=== PATIENT | female | born 1965 | race Caucasian/White ===

== ENCOUNTER 2019-05-03 16:58 | Inpatient (IN) ==
[2019-05-03] MEDS ORDERED: Ondansetron 4 MG/2 ML VIAL IVP ONE ×2 (17:19→19:07)
[2019-05-03] MEDS ORDERED: 0.9 % Sodium Chloride 500 ML IVC ONE (17:19)
[2019-05-03] MEDS ORDERED: Aspirin 81 MG TAB.CHEW PO ONE (17:19)
[2019-05-03] MEDS ORDERED: Isovue-370 500 ML BOTTLE IVP ONE (17:20)
[2019-05-03 17:56] LABS: Basophils % 0.2 %; Eosinophils # 0.1 K/mcL (0.0-0.6); Eosinophils % 0.9 %; Hematocrit 35.2 % (35.3-44.9); Hemoglobin 12.8 g/dL (11.5-15.4); Immature Granulocytes % 0.4 % (0-4); Lymphocytes # 1.1 K/mcL (0.6-4.6); Lymphocytes % 13.3 %; Mean Corpuscular HGB Conc 36.4 g/dL (31.6-35.5); Mean Corpuscular Hemoglobin 34.1 pg (28.0-33.3); Mean Corpuscular Volume 93.9 fL (83.0-100.0); Mean Platelet Volume 9.9 fL (9.4-12.4); Monocytes # 0.6 K/mcL (0.0-1.3); Monocytes % 7.8 %; Neutrophils # 6.3 K/mcL (1.6-8.9); Platelet Count 227 K/mcL (140-400); Red Blood Count 3.75 M/mcL (3.82-4.97); Red Cell Distribution Width 13.4 % (11.5-14.5); Segmented Neutrophils % 77.4 %; White Blood Count 8.1 K/mcL (4.3-11.1)
[2019-05-03] MEDS ORDERED: Pantoprazole 80 MG in 0.9 % Sodium Chloride 50 ML IVPB ONE (18:00)
[2019-05-03] MEDS ORDERED: cefTRIAXone 1,000 MG in Water for inj. (sterile) 10 ML IVP ONE (18:00)
[2019-05-03 18:16] LABS: Alanine Aminotransferase 7 Units/L (7-52); Albumin 4.2 g/dL (3.5-5.7); Albumin/Globulin Ratio 1.3 (1.1-2.2); Alkaline Phosphatase 103 Units/L (34-104); Aspartate Amino Transferase 10 Units/L (13-39); BUN/Creatinine Ratio 17 (6-26); Bilirubin,Direct 0.1 mg/dL (0.0-0.2); Bilirubin,Indirect 0.3 mg/dL (0.0-1.0); Bilirubin,Total 0.4 mg/dL (0.3-1.0); Blood Urea Nitrogen 41 mg/dL (6-20); Calcium 10.5 mg/dL (8.6-10.3); Carbon Dioxide 27 mEq/L (23-29); Chloride 97 mEq/L (98-107); Globulin 3.3 g/dL (2.4-3.5); Glucose 105 mg/dL (70-105); Lipase 199 Units/L (11-82); Osmolality,Calculated 290 (280-300); Potassium 3.8 mEq/L (3.5-5.1); Sodium 135 mEq/L (136-145); Total Protein 7.5 g/dL (6.4-8.9); Troponin I < 0.03 ng/mL (< 0.04); eGFR For African Americans 25 (> 60); eGFR For Non-African Americans 21 (> 60)
[2019-05-03 18:20] LABS: INR 1.2; Prothrombin Time 13.8 Seconds (9.4-12.1)
[2019-05-03] MEDS ORDERED: 0.9 % Sodium Chloride 1,000 ML IVC ONE (18:21)
[2019-05-03 18:22] LABS: Activated Partial Thrombo Time 32.1 Seconds (26.0-36.0)
[2019-05-03] MEDS ORDERED: *HR* FentaNYL (PF) 100 MCG/2 ML VIAL IVP ONE (18:33)
[2019-05-03 20:45] LABS: Bilirubin,Urine Negative (Negative); Blood,Urine Negative (Negative); Clarity,Urine Cloudy (Clear); Color,Urine Yellow (Yellow); Glucose,Urine (UA) Normal (Normal); Ketones,Urine Negative (Negative); Leukocyte Esterase,Urine Negative (Negative); Nitrite,Urine Negative (Negative); PH,Urine 5.5 pH Units (5.0-8.0); Protein,Urine Negative (Neg-Trace); Specific Gravity,Urine 1.022 (1.010-1.025); Urobilinogen,Urine Normal (Normal)
[2019-05-03 20:47] LABS: Bacteria,Urine Few per hpf (None-Few); Hyaline Casts,Urine None Seen per lpf (None-Few); Squamous Epithelial Cell,Urine Many per lpf (None-Few)
[2019-05-03] MEDS: Pantoprazole 40 MG in 0.9 % Sodium Chloride Mini Bag 100 ML IVC SCH (23:04)
[2019-05-04] MEDS: Pantoprazole 40 MG in 0.9 % Sodium Chloride Mini Bag 100 ML IVC SCH ×4 (00:10→14:00)
[2019-05-04] MEDS ORDERED: Naloxone 0.4 MG/ML INJ IVP PRN (00:38)
[2019-05-04] MEDS ORDERED: *HR* Dextrose 50 % in Water (Syg) 50 ML SYRINGE IVP PRN (00:41)
[2019-05-04] MEDS ORDERED: Dextrose Gel 15 GM/37.5 ML TUBE PO PRN ×2 (00:41)
[2019-05-04] MEDS ORDERED: D5% in Water 1,000 ML IVC PRN (00:41)
[2019-05-04] MEDS ORDERED: Nicotine 21 MG PATCH.TD24 TD PRN (00:52)
[2019-05-04 01:25] LABS: Hematocrit 29.7 % (35.3-44.9); Mean Corpuscular Hemoglobin 34.4 pg (28.0-33.3); Mean Corpuscular Volume 95.5 fL (83.0-100.0); Mean Platelet Volume 9.9 fL (9.4-12.4); Platelet Count 210 K/mcL (140-400); Red Blood Count 3.11 M/mcL (3.82-4.97); Red Cell Distribution Width 13.2 % (11.5-14.5); White Blood Count 7.1 K/mcL (4.3-11.1)
[2019-05-04 01:33] LABS: Hemoglobin 10.7 g/dL (11.5-15.4)
[2019-05-04 01:41] LABS: Calcium 8.7 mg/dL (8.6-10.3); Potassium 3.8 mEq/L (3.5-5.1)
[2019-05-04] MEDS: 0.9 % Sodium Chloride 1,000 ML IVC SCH ×2 (02:40→11:26)
[2019-05-04] MEDS: Insulin LISPRO 300 UNITS/3 ML VIAL SQ SCH ×4 (06:00→23:12)
[2019-05-04 07:30] LABS: Amphetamine Screen,Urine Negative ng/mL (Cutoff=1000); Barbiturate Screen,Urine Negative ng/mL (Cutoff=200)
[2019-05-04 07:31] LABS: Benzodiazepines Screen,Urine Negative ng/mL (Cutoff=300); Cannabinoid Screen,Urine Positive ng/mL (Cutoff = 50); Cocaine Screen,Urine Positive ng/mL (Cutoff= 300); Opiate Screen,Urine Negative ng/mL (Cutoff=300); Phencyclidine Screen,Urine Negative ng/mL (Cutoff=25)
[2019-05-04] MEDS: Ondansetron 4 MG/2 ML VIAL IVP PRN ×2 (08:58→16:21)
[2019-05-04 10:57] LABS: Hematocrit 30.4 % (35.3-44.9); Hemoglobin 10.2 g/dL (11.5-15.4)
[2019-05-04] MEDS ORDERED: 0.9 % Sodium Chloride 500 ML IVC SCH (15:00)
[2019-05-04] MEDS ORDERED: *HR* Propofol 200 MG/20 ML VIAL IVP ONE (15:10)
[2019-05-04] MEDS ORDERED: Tetracaine/Benzocaine/Butamben 1 SPRAY AEROSOL MM ONE (15:14)
[2019-05-04] MEDS ORDERED: Simethicone 40 MG/0.6 ML MLS IR ONE (15:14)
[2019-05-04] MEDS ORDERED: 0.9 % Sodium Chloride 1,000 ML IVC SCH (16:15)
[2019-05-04] MEDS: Nystatin SUSP 5 ML UD.LIQ PO SCH ×2 (16:21→21:51)
[2019-05-04 17:17] LABS: Hematocrit 29.5 % (35.3-44.9); Hemoglobin 10.1 g/dL (11.5-15.4)
[2019-05-05 02:48] LABS: Basophils % 0.2 %; Eosinophils # 0.1 K/mcL (0.0-0.6); Eosinophils % 1.5 %; Hematocrit 26.5 % (35.3-44.9); Immature Granulocytes % 0.5 % (0-4); Lymphocytes # 2.1 K/mcL (0.6-4.6); Lymphocytes % 32.8 %; Mean Corpuscular Hemoglobin 34.4 pg (28.0-33.3); Mean Corpuscular Volume 101.1 fL (83.0-100.0); Mean Platelet Volume 9.8 fL (9.4-12.4); Monocytes # 0.6 K/mcL (0.0-1.3); Monocytes % 8.8 %; Neutrophils # 3.6 K/mcL (1.6-8.9); Platelet Count 175 K/mcL (140-400); Red Blood Count 2.62 M/mcL (3.82-4.97); Red Cell Distribution Width 13.2 % (11.5-14.5); Segmented Neutrophils % 56.2 %; White Blood Count 6.5 K/mcL (4.3-11.1)
[2019-05-05 03:13] LABS: Albumin 2.9 g/dL (3.5-5.7); Albumin/Globulin Ratio 1.3 (1.1-2.2); Bilirubin,Total 0.3 mg/dL (0.3-1.0); Calcium 7.6 mg/dL (8.6-10.3); Globulin 2.3 g/dL (2.4-3.5); Potassium 3.6 mEq/L (3.5-5.1); Total Protein 5.2 g/dL (6.4-8.9)
[2019-05-05] MEDS: Insulin LISPRO 300 UNITS/3 ML VIAL SQ SCH (05:48)
[2019-05-05] MEDS: Loratadine 10 MG TABLET PO SCH (08:40)
[2019-05-05] MEDS: Ondansetron 4 MG/2 ML VIAL IVP PRN ×2 (08:40→16:49)
[2019-05-05] MEDS: Nystatin SUSP 5 ML UD.LIQ PO SCH ×4 (08:41→20:24)
[2019-05-05 17:57] LABS: Hemoglobin 10.6 g/dL (11.5-15.4)
[2019-05-05] MEDS: Ringers Solution, Lactated 1,000 ML IVC SCH (19:27)
[2019-05-05] MEDS ORDERED: *HR* Promethazine 25 MG/ML VIAL IVP ONE (19:46)
[2019-05-05] MEDS: BUPRENORPHIN NALOXONE PO SCH (20:27)
[2019-05-06] MEDS: Ondansetron 4 MG/2 ML VIAL IVP PRN (02:59)
[2019-05-06 05:02] LABS: Basophils % 0.3 %; Eosinophils % 0.1 %; Hematocrit 24.1 % (35.3-44.9); Immature Granulocytes % 0.8 % (0-4); Lymphocytes # 1.2 K/mcL (0.6-4.6); Lymphocytes % 16.4 %; Mean Corpuscular HGB Conc 36.1 g/dL (31.6-35.5); Mean Corpuscular Hemoglobin 34.4 pg (28.0-33.3); Mean Corpuscular Volume 95.3 fL (83.0-100.0); Mean Platelet Volume 10.3 fL (9.4-12.4); Monocytes # 0.6 K/mcL (0.0-1.3); Monocytes % 8.9 %; Neutrophils # 5.3 K/mcL (1.6-8.9); Platelet Count 199 K/mcL (140-400); Red Blood Count 2.53 M/mcL (3.82-4.97); Red Cell Distribution Width 12.7 % (11.5-14.5); Segmented Neutrophils % 73.5 %; White Blood Count 7.2 K/mcL (4.3-11.1)
[2019-05-06 05:03] LABS: Hemoglobin 8.7 g/dL (11.5-15.4)
[2019-05-06 05:13] LABS: Albumin 2.8 g/dL (3.5-5.7); Albumin/Globulin Ratio 1.2 (1.1-2.2); Bilirubin,Total 0.4 mg/dL (0.3-1.0); Calcium 7.6 mg/dL (8.6-10.3); Globulin 2.4 g/dL (2.4-3.5); Magnesium 1.3 mg/dL (1.6-2.6); Potassium 3.6 mEq/L (3.5-5.1); Total Protein 5.2 g/dL (6.4-8.9)
[2019-05-06] MEDS: Ringers Solution, Lactated 1,000 ML IVC SCH (05:21)
[2019-05-06 08:06] LABS: Estimated Average Glucose 126 mg/dl
[2019-05-06] MEDS: Loratadine 10 MG TABLET PO SCH (08:11)
[2019-05-06] MEDS: Nystatin SUSP 5 ML UD.LIQ PO SCH ×4 (08:11→20:52)
[2019-05-06] MEDS: BUPRENORPHIN NALOXONE PO SCH (08:11)
[2019-05-06 10:41] LABS: Hematocrit 24.1 % (35.3-44.9); Hemoglobin 8.9 g/dL (11.5-15.4)
[2019-05-07] MEDS: Nystatin SUSP 5 ML UD.LIQ PO SCH (09:43)
[2019-05-07] MEDS: Loratadine 10 MG TABLET PO SCH (09:44)
[2019-05-07] MEDS: BUPRENORPHIN NALOXONE PO SCH (10:00)
[2019-05-07 10:35] LABS: Hematocrit 28.1 % (35.3-44.9); Hemoglobin 10.4 g/dL (11.5-15.4)
[2019-05-07 11:21] VITALS: BP 117/75
== END 2019-05-07 13:53 | disposition home or self-care (01) | DRG 242 ==
LOC: 3ANU 16:58 → EMEROOARM 16:58 → SUATTDRO 20:15 → 3ANU 21:24
PROVIDERS: ADMIT Internal Medicine; ATTEND Internal Medicine
PROC: ENDOEBX (2019-05-04 15:00)

== ENCOUNTER 2019-05-19 16:06 | Observation (INO) ==
[2019-05-19] MEDS ORDERED: *HR* Heparin 5,000 UNIT/ML VIAL IVP PRN ×2 (18:56)
[2019-05-19] MEDS ORDERED: *HR* Heparin 5,000 UNIT/ML VIAL IVP ONE (18:56)
[2019-05-19 19:16] LABS: Basophils % 0.7 %; Eosinophils # 0.2 K/mcL (0.0-0.6); Eosinophils % 2.9 %; Hematocrit 34.8 % (35.3-44.9); Hemoglobin 11.8 g/dL (11.5-15.4); Immature Granulocytes % 0.2 % (0-4); Lymphocytes # 1.8 K/mcL (0.6-4.6); Lymphocytes % 31.8 %; Mean Corpuscular HGB Conc 33.9 g/dL (31.6-35.5); Mean Corpuscular Hemoglobin 33.6 pg (28.0-33.3); Mean Corpuscular Volume 99.1 fL (83.0-100.0); Mean Platelet Volume 9.6 fL (9.4-12.4); Monocytes # 0.5 K/mcL (0.0-1.3); Monocytes % 7.9 %; Neutrophils # 3.3 K/mcL (1.6-8.9); Platelet Count 328 K/mcL (140-400); Red Blood Count 3.51 M/mcL (3.82-4.97); Red Cell Distribution Width 14.2 % (11.5-14.5); Segmented Neutrophils % 56.5 %; White Blood Count 5.8 K/mcL (4.3-11.1)
[2019-05-19 19:25] LABS: Prothrombin Time 11.8 Seconds (9.4-12.1)
[2019-05-19 19:27] LABS: Activated Partial Thrombo Time 33.7 Seconds (26.0-36.0)
[2019-05-19 19:28] LABS: Heparin anti-factor XA UFH 0.02 IU/mL (0.30-0.70)
[2019-05-19 19:33] LABS: Calcium 8.9 mg/dL (8.6-10.3); Potassium 3.4 mEq/L (3.5-5.1)
[2019-05-19] MEDS: Heparin 25,000 UNIT/250 ML D5W 25,000 UNIT/250 ML IV.SOLN IVC SCH (19:35)
[2019-05-20] MEDS ORDERED: NON-FORMULARY MEDICATION 1 EACH EACH (Quetiapine Fumarate [Seroquel] 400 MG) PO SCH (00:45)
[2019-05-20] MEDS: Nystatin SUSP 5 ML UD.LIQ PO SCH ×5 (01:01→20:24)
[2019-05-20] MEDS ORDERED: Naloxone 0.4 MG/ML INJ IVP PRN (04:51)
[2019-05-20] MEDS ORDERED: D5% in Water 1,000 ML IVC PRN (05:05)
[2019-05-20] MEDS ORDERED: *HR* Dextrose 50 % in Water (Syg) 50 ML SYRINGE IVP PRN (05:05)
[2019-05-20] MEDS ORDERED: Dextrose Gel 15 GM/37.5 ML TUBE PO PRN ×2 (05:05)
[2019-05-20] MEDS ORDERED: 0.9 % Sodium Chloride 1,000 ML IVC ONE (05:08)
[2019-05-20 05:25] LABS: Hematocrit 28.1 % (35.3-44.9); Mean Corpuscular HGB Conc 33.1 g/dL (31.6-35.5); Mean Corpuscular Hemoglobin 33.7 pg (28.0-33.3); Mean Corpuscular Volume 101.8 fL (83.0-100.0); Platelet Count 250 K/mcL (140-400); Red Blood Count 2.76 M/mcL (3.82-4.97); Red Cell Distribution Width 14.1 % (11.5-14.5); White Blood Count 5.3 K/mcL (4.3-11.1)
[2019-05-20 05:41] LABS: Hemoglobin 9.3 g/dL (11.5-15.4)
[2019-05-20] MEDS: Nicotine 21 MG PATCH.TD24 TD SCH (05:51)
[2019-05-20 06:01] LABS: Potassium 3.4 mEq/L (3.5-5.1)
[2019-05-20] MEDS: Insulin LISPRO 300 UNITS/3 ML VIAL SQ SCH ×3 (08:13→16:52)
[2019-05-20] MEDS: Buprenorphine Hcl/Naloxone Hcl 8-2 MG PO SCH (08:22)
[2019-05-20] MEDS ORDERED: *HR* OxyCODONE/APAP 5/325 TABLET PO PRN (14:06)
[2019-05-20] MEDS ORDERED: Acetaminophen IV 1,000 MG/100 ML INFUS..BTL IVPB ONE (20:53)
[2019-05-20] MEDS ORDERED: Insulin LISPRO 300 UNITS/3 ML VIAL SQ SCH (21:00)
[2019-05-20] MEDS: Heparin 25,000 UNIT/250 ML D5W 25,000 UNIT/250 ML IV.SOLN IVC SCH (22:01)
[2019-05-21 06:28] LABS: Hematocrit 29.5 % (35.3-44.9); Hemoglobin 10.2 g/dL (11.5-15.4); Mean Corpuscular HGB Conc 34.6 g/dL (31.6-35.5); Mean Corpuscular Hemoglobin 33.9 pg (28.0-33.3); Mean Platelet Volume 11.2 fL (9.4-12.4); Platelet Count 216 K/mcL (140-400); Red Blood Count 3.01 M/mcL (3.82-4.97); Red Cell Distribution Width 13.9 % (11.5-14.5); White Blood Count 4.9 K/mcL (4.3-11.1)
[2019-05-21 06:43] LABS: Calcium 8.1 mg/dL (8.6-10.3); Potassium 4.3 mEq/L (3.5-5.1)
[2019-05-21] MEDS: Insulin LISPRO 300 UNITS/3 ML VIAL SQ SCH ×2 (08:22→12:00)
[2019-05-21] MEDS: Nicotine 21 MG PATCH.TD24 TD SCH ×2 (08:24→08:33)
[2019-05-21] MEDS: Nystatin SUSP 5 ML UD.LIQ PO SCH ×2 (08:24→12:49)
[2019-05-21] MEDS: Buprenorphine Hcl/Naloxone Hcl 8-2 MG PO SCH (08:31)
[2019-05-21 11:15] VITALS: BP 129/83
[2019-05-23 17:25] LABS: FACV Specimen WHOLE BLOOD
[2019-05-24 10:29] LABS: Fac V Leiden R506Q Mut Result NEGATIVE
== END 2019-05-21 14:40 | disposition home or self-care (01) ==
LOC: EMEROOARM 16:06 → 3BNU 16:06
PROVIDERS: ADMIT Internal Medicine; ATTEND Internal Medicine

== ENCOUNTER 2019-09-21 15:32 | Inpatient (IN) ==
[2019-09-21] MEDS ORDERED: Isovue-370 500 ML BOTTLE IVP ONE (15:38)
[2019-09-21] MEDS ORDERED: *HR* FentaNYL (PF) 100 MCG/2 ML VIAL IVP ONE (15:41)
[2019-09-21] MEDS ORDERED: *HR* LORazepam 1 MG TABLET PO ONE (16:29)
[2019-09-21] MEDS ORDERED: 0.9 % Sodium Chloride 1,000 ML IVC ONE ×2 (16:37→18:54)
[2019-09-21 17:44] LABS: Basophils % 0.1 %; Eosinophils % 0.1 %; Hematocrit 30.2 % (35.3-44.9); Hemoglobin 9.8 g/dL (11.5-15.4); Immature Granulocytes % 0.4 % (0-4); Lymphocytes # 0.7 K/mcL (0.6-4.6); Lymphocytes % 5.9 %; Mean Corpuscular HGB Conc 32.5 g/dL (31.6-35.5); Mean Corpuscular Volume 95.6 fL (83.0-100.0); Mean Platelet Volume 9.2 fL (9.4-12.4); Monocytes # 0.9 K/mcL (0.0-1.3); Monocytes % 7.6 %; Neutrophils # 9.9 K/mcL (1.6-8.9); Platelet Count 530 K/mcL (140-400); Red Blood Count 3.16 M/mcL (3.82-4.97); Red Cell Distribution Width 13.9 % (11.5-14.5); Segmented Neutrophils % 85.9 %; White Blood Count 11.5 K/mcL (4.3-11.1)
[2019-09-21 17:51] LABS: INR 2.8; Prothrombin Time 31.4 Seconds (9.4-12.1)
[2019-09-21 18:09] LABS: Alanine Aminotransferase 5 Units/L (7-52); Albumin 3.4 g/dL (3.5-5.7); Alkaline Phosphatase 100 Units/L (34-104); Aspartate Amino Transferase 7 Units/L (13-39); BUN/Creatinine Ratio 10 (6-26); Bilirubin,Total 0.4 mg/dL (0.3-1.0); Blood Urea Nitrogen 9 mg/dL (6-20); Calcium 8.8 mg/dL (8.6-10.3); Carbon Dioxide 23 mEq/L (23-29); Chloride 102 mEq/L (98-107); Globulin 3.4 g/dL (2.4-3.5); Glucose 119 mg/dL (70-105); Lipase 3 Units/L (11-82); Osmolality,Calculated 272 (280-300); Potassium 4.2 mEq/L (3.5-5.1); Sodium 131 mEq/L (136-145); Total Protein 6.8 g/dL (6.4-8.9); Troponin I < 0.03 ng/mL (< 0.04); eGFR For African Americans > 60 (> 60); eGFR For Non-African Americans > 60 (> 60)
[2019-09-21] MEDS ORDERED: Piperacillin/Tazobactam 3.375 GM in 0.9 % Sodium Chloride Mini Bag 100 ML IVPB ONE (18:55)
[2019-09-21] MEDS ORDERED: Azithromycin 500 MG in 0.9 % Sodium Chloride 250 ML IVPB ONE (19:05)
[2019-09-21 20:10] LABS: Ferritin 99 ng/mL (10-120)
[2019-09-21] MEDS ORDERED: Naloxone 0.4 MG/ML INJ IVP PRN (21:08)
[2019-09-21] MEDS ORDERED: Benzonatate 100 MG CAPSULE PO PRN (21:13)
[2019-09-21] MEDS ORDERED: methylPREDNISolone 125 MG/2 ML VIAL IVP ONE (21:16)
[2019-09-21] MEDS ORDERED: Vancomycin (wt based) 1,000 MG VIAL IVPB SCH (22:00)
[2019-09-21] MEDS: QUEtiapine Fumarate 100 MG TABLET PO SCH (22:14)
[2019-09-21] MEDS ORDERED: Morphine Sulfate 2 MG/ML SYRINGE IVP ONE (22:15)
[2019-09-21] MEDS ORDERED: GuaiFENesin/Codeine Oral Soln 5 ML UDC PO PRN (22:16)
[2019-09-21] MEDS: cefTRIAXone 2,000 MG in Water for inj. (sterile) 20 ML IVP SCH (22:21)
[2019-09-21] MEDS: Benzonatate 100 MG CAPSULE PO SCH (22:36)
[2019-09-21] MEDS: Acetaminophen 325 MG TABLET PO PRN (23:48)
[2019-09-22 01:54] LABS: Bilirubin,Urine Negative (Negative); Blood,Urine Trace (Negative); Clarity,Urine Clear (Clear); Color,Urine Yellow (Yellow); Glucose,Urine (UA) Normal (Normal); Ketones,Urine Negative (Negative); Leukocyte Esterase,Urine Trace (Negative); Nitrite,Urine Positive (Negative); PH,Urine 6.5 pH Units (5.0-8.0); Protein,Urine Negative (Neg-Trace); Specific Gravity,Urine 1.021 (1.010-1.025); Urobilinogen,Urine Normal (Normal)
[2019-09-22 01:56] LABS: Bacteria,Urine None Seen per hpf (None-Few); Hyaline Casts,Urine None Seen per lpf (None-Few); RBC,Urine 0-3 per hpf (0-3); Squamous Epithelial Cell,Urine Many per lpf (None-Few)
[2019-09-22 05:28] LABS: Magnesium 1.4 mg/dL (1.6-2.6); Phosphorous 2.5 mg/dL (2.7-4.5)
[2019-09-22 06:40] LABS: Basophils % 0.1 %; Hematocrit 26.5 % (35.3-44.9); Hemoglobin 8.7 g/dL (11.5-15.4); Immature Granulocytes % 0.5 % (0-4); Lymphocytes # 0.7 K/mcL (0.6-4.6); Lymphocytes % 3.6 %; Mean Corpuscular HGB Conc 32.8 g/dL (31.6-35.5); Mean Corpuscular Volume 94.3 fL (83.0-100.0); Mean Platelet Volume 9.1 fL (9.4-12.4); Monocytes # 1.1 K/mcL (0.0-1.3); Monocytes % 5.6 %; Neutrophils # 17.3 K/mcL (1.6-8.9); Platelet Count 450 K/mcL (140-400); Red Blood Count 2.81 M/mcL (3.82-4.97); Red Cell Distribution Width 13.8 % (11.5-14.5); Segmented Neutrophils % 90.2 %
[2019-09-22 06:42] LABS: White Blood Count 19.2 K/mcL (4.3-11.1)
[2019-09-22] MEDS: Benzonatate 100 MG CAPSULE PO SCH ×3 (09:45→21:14)
[2019-09-22] MEDS: Loratadine 10 MG TABLET PO SCH (09:45)
[2019-09-22] MEDS: *HR* Rivaroxaban 10 MG TABLET PO SCH (09:45)
[2019-09-22] MEDS: QUEtiapine Fumarate 100 MG TABLET PO SCH ×2 (09:46→21:13)
[2019-09-22] MEDS: predniSONE 20 MG TABLET PO SCH (09:46)
[2019-09-22] MEDS: Azithromycin 500 MG in 0.9 % Sodium Chloride 250 ML IVPB SCH (21:12)
[2019-09-22] MEDS: cefTRIAXone 2,000 MG in Water for inj. (sterile) 20 ML IVP SCH (21:15)
[2019-09-23 06:22] LABS: Hemoglobin 8.5 g/dL (11.5-15.4); Mean Platelet Volume 9.6 fL (9.4-12.4)
[2019-09-23 06:24] LABS: Hematocrit 24.7 % (35.3-44.9); Mean Corpuscular HGB Conc 34.4 g/dL (31.6-35.5); Mean Corpuscular Hemoglobin 31.7 pg (28.0-33.3); Mean Corpuscular Volume 92.2 fL (83.0-100.0); Platelet Count 485 K/mcL (140-400); Red Blood Count 2.68 M/mcL (3.82-4.97); Red Cell Distribution Width 14.2 % (11.5-14.5); White Blood Count 25.7 K/mcL (4.3-11.1)
[2019-09-23 06:39] LABS: BUN/Creatinine Ratio 18 (6-26); Blood Urea Nitrogen 14 mg/dL (6-20); Calcium 8.1 mg/dL (8.6-10.3); Carbon Dioxide 20 mEq/L (23-29); Chloride 104 mEq/L (98-107); Glucose 104 mg/dL (70-105); Magnesium 2.2 mg/dL (1.6-2.6); Osmolality,Calculated 279 (280-300); Phosphorous 2.7 mg/dL (2.7-4.5); Potassium 3.7 mEq/L (3.5-5.1); Sodium 134 mEq/L (136-145); eGFR For African Americans > 60 (> 60); eGFR For Non-African Americans > 60 (> 60)
[2019-09-23] MEDS: Benzonatate 100 MG CAPSULE PO SCH ×3 (07:41→19:54)
[2019-09-23] MEDS: predniSONE 20 MG TABLET PO SCH (07:41)
[2019-09-23] MEDS: Loratadine 10 MG TABLET PO SCH (07:41)
[2019-09-23] MEDS: *HR* Rivaroxaban 10 MG TABLET PO SCH (07:41)
[2019-09-23] MEDS: QUEtiapine Fumarate 100 MG TABLET PO SCH ×2 (07:41→19:54)
[2019-09-23] MEDS ORDERED: Aminoglycoside Consult 1 EACH MC ONE (08:23)
[2019-09-23] MEDS: Piperacillin/Tazobactam 3.375 GM in 0.9 % Sodium Chloride Mini Bag 100 ML IVPB SCH ×2 (11:29→18:25)
[2019-09-23] MEDS: Acetaminophen 325 MG TABLET PO PRN (18:30)
[2019-09-23] MEDS: Azithromycin 500 MG in 0.9 % Sodium Chloride 250 ML IVPB SCH (21:38)
[2019-09-23] MEDS: *HR* OxyCODONE Immed Rel 5 MG TABLET PO PRN (21:45)
[2019-09-24] MEDS: Piperacillin/Tazobactam 3.375 GM in 0.9 % Sodium Chloride Mini Bag 100 ML IVPB SCH ×3 (03:30→20:04)
[2019-09-24] MEDS: *HR* OxyCODONE Immed Rel 5 MG TABLET PO PRN ×4 (03:51→22:25)
[2019-09-24] MEDS: Loratadine 10 MG TABLET PO SCH (07:47)
[2019-09-24] MEDS: QUEtiapine Fumarate 100 MG TABLET PO SCH ×2 (07:49→20:03)
[2019-09-24] MEDS: predniSONE 20 MG TABLET PO SCH (07:53)
[2019-09-24] MEDS: Benzonatate 100 MG CAPSULE PO SCH ×3 (07:56→20:03)
[2019-09-24] MEDS: *HR* Rivaroxaban 10 MG TABLET PO SCH (08:02)
[2019-09-24 09:13] LABS: Hemoglobin 8.9 g/dL (11.5-15.4)
[2019-09-24 09:14] LABS: Hematocrit 26.9 % (35.3-44.9); Mean Corpuscular HGB Conc 33.1 g/dL (31.6-35.5); Mean Corpuscular Volume 93.7 fL (83.0-100.0); Mean Platelet Volume 9.4 fL (9.4-12.4); Platelet Count 560 K/mcL (140-400); Red Blood Count 2.87 M/mcL (3.82-4.97); Red Cell Distribution Width 14.2 % (11.5-14.5); White Blood Count 25.4 K/mcL (4.3-11.1)
[2019-09-24 09:29] LABS: BUN/Creatinine Ratio 13 (6-26); Blood Urea Nitrogen 11 mg/dL (6-20); Calcium 8.2 mg/dL (8.6-10.3); Carbon Dioxide 24 mEq/L (23-29); Chloride 101 mEq/L (98-107); Glucose 116 mg/dL (70-105); Magnesium 1.8 mg/dL (1.6-2.6); Osmolality,Calculated 276 (280-300); Potassium 3.6 mEq/L (3.5-5.1); Sodium 133 mEq/L (136-145); eGFR For African Americans > 60 (> 60); eGFR For Non-African Americans > 60 (> 60)
[2019-09-24] MEDS: levoFLOXacin 750 MG/150 ML 750 MG/150 ML BAG IVPB SCH (09:40)
[2019-09-24] MEDS: Acetaminophen 325 MG TABLET PO PRN (14:17)
[2019-09-25] MEDS: Piperacillin/Tazobactam 3.375 GM in 0.9 % Sodium Chloride Mini Bag 100 ML IVPB SCH ×2 (03:12→20:18)
[2019-09-25 03:39] LABS: Hematocrit 23.2 % (35.3-44.9)
[2019-09-25 03:40] LABS: Hemoglobin 7.7 g/dL (11.5-15.4); Mean Corpuscular HGB Conc 33.2 g/dL (31.6-35.5); Mean Corpuscular Hemoglobin 31.2 pg (28.0-33.3); Mean Corpuscular Volume 93.9 fL (83.0-100.0); Mean Platelet Volume 9.6 fL (9.4-12.4); Platelet Count 507 K/mcL (140-400); Red Blood Count 2.47 M/mcL (3.82-4.97); Red Cell Distribution Width 14.2 % (11.5-14.5)
[2019-09-25 03:56] LABS: BUN/Creatinine Ratio 19 (6-26); Blood Urea Nitrogen 13 mg/dL (6-20); Calcium 8.3 mg/dL (8.6-10.3); Carbon Dioxide 22 mEq/L (23-29); Chloride 102 mEq/L (98-107); Glucose 119 mg/dL (70-105); Osmolality,Calculated 279 (280-300); Potassium 3.9 mEq/L (3.5-5.1); Sodium 134 mEq/L (136-145); eGFR For African Americans > 60 (> 60); eGFR For Non-African Americans > 60 (> 60)
[2019-09-25] MEDS: *HR* OxyCODONE Immed Rel 5 MG TABLET PO PRN (04:55)
[2019-09-25 07:17] LABS: Hematocrit 20.2 % (35.3-44.9); Hemoglobin 6.6 g/dL (11.5-15.4)
[2019-09-25] MEDS ORDERED: *HR* Rocuronium Bromide 50 MG/5 ML VIAL ONE (08:59)
[2019-09-25] MEDS ORDERED: Ondansetron 4 MG/2 ML VIAL ONE (09:00)
[2019-09-25] MEDS ORDERED: *HR* Propofol 200 MG/20 ML VIAL IVP ONE (09:00)
[2019-09-25] MEDS ORDERED: *HR* FentaNYL (PF) 100 MCG/2 ML VIAL ONE ×2 (09:00→10:48)
[2019-09-25] MEDS ORDERED: Dexamethasone 4 MG/ML VIAL ONE (09:00)
[2019-09-25] MEDS ORDERED: Lidocaine -MPF 2% 2 ML VIAL ONE (09:00)
[2019-09-25] MEDS ORDERED: Albumin Human 5% 0 GM/0 ML IV.SOLN ONE (09:02)
[2019-09-25] MEDS ORDERED: *HR* HYDROMORPHONE 2 MG/ML VIAL ONE (09:48)
[2019-09-25] MEDS ORDERED: *HR* Midazolam HCl 2 MG/2 ML VIAL ONE (10:50)
[2019-09-25] MEDS ORDERED: Acetaminophen IV 1,000 MG/100 ML INFUS..BTL IVPB ONE (11:16)
[2019-09-25] MEDS ORDERED: *HR* Promethazine 25 MG/ML VIAL IVP PRN (11:16)
[2019-09-25] MEDS ORDERED: *HR* HYDROmorphone 2 MG TABLET PO PRN (11:16)
[2019-09-25] MEDS ORDERED: Pregabalin 75 MG CAPSULE PO ONE (11:16)
[2019-09-25] MEDS ORDERED: *HR* OxyCODONE Immed Rel 5 MG TABLET PO PRN ×2 (11:16→12:21)
[2019-09-25] MEDS ORDERED: *HR* Labetalol 20 MG/4 ML SYRINGE IVP PRN (11:16)
[2019-09-25] MEDS: *HR* HYDROmorphone (PF) 1 MG/ML SYRINGE IVP PRN ×3 (11:33→12:02)
[2019-09-25] MEDS ORDERED: Naloxone 0.4 MG/ML INJ IVP PRN (12:21)
[2019-09-25] MEDS ORDERED: GuaiFENesin/Codeine Oral Soln 5 ML UDC PO PRN (12:21)
[2019-09-25] MEDS: 0.9 % Sodium Chloride 1,000 ML IVC SCH (12:45)
[2019-09-25 13:14] LABS: Hematocrit 26.9 % (35.3-44.9)
[2019-09-25 13:15] LABS: Hemoglobin 8.8 g/dL (11.5-15.4)
[2019-09-25] MEDS: Gabapentin 300 MG CAPSULE PO SCH ×2 (14:00→21:27)
[2019-09-25] MEDS: Benzonatate 100 MG CAPSULE PO SCH ×2 (14:00→21:27)
[2019-09-25] MEDS: *HR* Heparin 5,000 UNIT/ML VIAL SQ SCH ×2 (14:01→21:31)
[2019-09-25 19:43] LABS: Hematocrit 22.7 % (35.3-44.9); Hemoglobin 7.5 g/dL (11.5-15.4)
[2019-09-25] MEDS: Acetaminophen 325 MG TABLET PO PRN (20:27)
[2019-09-25] MEDS: QUEtiapine Fumarate 100 MG TABLET PO SCH (21:30)
[2019-09-26 00:10] LABS: Hemoglobin 7.6 g/dL (11.5-15.4)
[2019-09-26] MEDS: Piperacillin/Tazobactam 3.375 GM in 0.9 % Sodium Chloride Mini Bag 100 ML IVPB SCH ×3 (04:00→17:55)
[2019-09-26 04:26] LABS: Hematocrit 23.4 % (35.3-44.9); Hemoglobin 7.8 g/dL (11.5-15.4); Mean Corpuscular HGB Conc 33.3 g/dL (31.6-35.5); Mean Corpuscular Hemoglobin 30.8 pg (28.0-33.3); Mean Corpuscular Volume 92.5 fL (83.0-100.0); Mean Platelet Volume 9.6 fL (9.4-12.4); Platelet Count 494 K/mcL (140-400); Red Blood Count 2.53 M/mcL (3.82-4.97); Red Cell Distribution Width 14.3 % (11.5-14.5)
[2019-09-26 04:40] LABS: BUN/Creatinine Ratio 19 (6-26); Blood Urea Nitrogen 14 mg/dL (6-20); Carbon Dioxide 23 mEq/L (23-29); Chloride 100 mEq/L (98-107); Glucose 112 mg/dL (70-105); Iron < 10 mcg/dL (50-170); Magnesium 1.9 mg/dL (1.6-2.6); Osmolality,Calculated 273 (280-300); Sodium 131 mEq/L (136-145); Transferrin 140 mg/dL (203-362); eGFR For African Americans > 60 (> 60); eGFR For Non-African Americans > 60 (> 60)
[2019-09-26] MEDS: *HR* Heparin 5,000 UNIT/ML VIAL SQ SCH ×3 (05:56→21:46)
[2019-09-26] MEDS: 0.9 % Sodium Chloride 1,000 ML IVC SCH (05:58)
[2019-09-26] MEDS: *HR* OxyCODONE Immed Rel 5 MG TABLET PO PRN ×2 (05:59→21:44)
[2019-09-26] MEDS: Benzonatate 100 MG CAPSULE PO SCH (08:26)
[2019-09-26] MEDS: QUEtiapine Fumarate 100 MG TABLET PO SCH ×2 (08:26→21:42)
[2019-09-26] MEDS: Acetaminophen 325 MG TABLET PO PRN (08:27)
[2019-09-26] MEDS: Gabapentin 300 MG CAPSULE PO SCH ×3 (08:27→21:44)
[2019-09-26] MEDS: Loratadine 10 MG TABLET PO SCH (08:27)
[2019-09-26] MEDS: levoFLOXacin 750 MG/150 ML 750 MG/150 ML BAG IVPB SCH (08:27)
[2019-09-26] MEDS ORDERED: Ibuprofen 600 MG TABLET PO PRN ×2 (08:59→14:00)
[2019-09-26] MEDS: valACYclovir 500 MG TABLET PO SCH ×2 (10:49→21:45)
[2019-09-26] MEDS ORDERED: Iron Sucrose Complex 400 MG in 0.9 % Sodium Chloride 250 ML IVPB ONE (12:30)
[2019-09-26] MEDS ORDERED: 0.9 % Sodium Chloride 1,000 ML IVC SCH (12:45)
[2019-09-27] MEDS: Piperacillin/Tazobactam 3.375 GM in 0.9 % Sodium Chloride Mini Bag 100 ML IVPB SCH ×4 (02:20→19:49)
[2019-09-27 04:27] LABS: Basophils % 0.2 %; Eosinophils # 0.1 K/mcL (0.0-0.6); Eosinophils % 0.3 %; Hematocrit 20.4 % (35.3-44.9); Hemoglobin 6.7 g/dL (11.5-15.4); Immature Granulocytes % 5.9 % (0-4); Lymphocytes # 1.4 K/mcL (0.6-4.6); Lymphocytes % 7.3 %; Mean Corpuscular HGB Conc 32.8 g/dL (31.6-35.5); Mean Corpuscular Volume 94.4 fL (83.0-100.0); Mean Platelet Volume 9.7 fL (9.4-12.4); Monocytes # 2.1 K/mcL (0.0-1.3); Monocytes % 11.4 %; Nucleated Red Blood Cells 0.1 /100 WBC (0); Platelet Count 388 K/mcL (140-400); Red Blood Count 2.16 M/mcL (3.82-4.97); Red Cell Distribution Width 14.4 % (11.5-14.5); Segmented Neutrophils % 74.9 %; White Blood Count 18.7 K/mcL (4.3-11.1)
[2019-09-27 04:49] LABS: BUN/Creatinine Ratio 13 (6-26); Blood Urea Nitrogen 8 mg/dL (6-20); Calcium 7.6 mg/dL (8.6-10.3); Carbon Dioxide 23 mEq/L (23-29); Chloride 103 mEq/L (98-107); Glucose 120 mg/dL (70-105); Osmolality,Calculated 276 (280-300); Potassium 3.3 mEq/L (3.5-5.1); Sodium 133 mEq/L (136-145); Vancomycin,Trough 11 mcg/mL (5-10); eGFR For African Americans > 60 (> 60); eGFR For Non-African Americans > 60 (> 60)
[2019-09-27 05:07] LABS: Platelet Estimate Normal (Normal)
[2019-09-27 05:13] LABS: Folate 5.9 ng/mL (3.0-16.0)
[2019-09-27] MEDS: *HR* Heparin 5,000 UNIT/ML VIAL SQ SCH (05:27)
[2019-09-27] MEDS: *HR* OxyCODONE Immed Rel 5 MG TABLET PO PRN ×3 (06:28→19:25)
[2019-09-27] MEDS ORDERED: 0.9 % Sodium Chloride 250 ML ONE (08:18)
[2019-09-27] MEDS: Cyanocobalamin (B-12) 1,000 MCG TABLET PO SCH (08:30)
[2019-09-27] MEDS: Loratadine 10 MG TABLET PO SCH ×2 (08:30→19:48)
[2019-09-27] MEDS: QUEtiapine Fumarate 100 MG TABLET PO SCH ×3 (08:30→20:10)
[2019-09-27] MEDS: valACYclovir 500 MG TABLET PO SCH ×2 (08:30→20:09)
[2019-09-27] MEDS: Gabapentin 300 MG CAPSULE PO SCH ×3 (08:31→20:09)
[2019-09-27] MEDS: levoFLOXacin 750 MG/150 ML 750 MG/150 ML BAG IVPB SCH ×2 (08:32→19:49)
[2019-09-27] MEDS ORDERED: Thiamine (B-1) 100 MG in 0.9 % Sodium Chloride 50 ML IVPB ONE (08:49)
[2019-09-27] MEDS ORDERED: Potassium Phosphate 44 MEQ in 0.9 % Sodium Chloride 250 ML IVPB ONE (08:49)
[2019-09-27] MEDS ORDERED: Folic Acid 1 MG in 0.9 % Sodium Chloride 50 ML IVPB ONE (08:49)
[2019-09-27] MEDS ORDERED: Iron Sucrose Complex 400 MG in 0.9 % Sodium Chloride 250 ML IVPB ONE (09:00)
[2019-09-27] MEDS: Ondansetron 4 MG/2 ML VIAL IVP PRN ×2 (09:46→15:37)
[2019-09-27 13:29] LABS: Hemoglobin 7.7 g/dL (11.5-15.4)
[2019-09-27] MEDS: Acetaminophen 325 MG TABLET PO PRN (18:28)
[2019-09-27] MEDS: predniSONE 20 MG TABLET PO SCH (19:48)
[2019-09-27] MEDS: Benzonatate 100 MG CAPSULE PO SCH (19:48)
[2019-09-27] MEDS: Lactobacillus 1 EACH CAP.SPRINK PO SCH (20:09)
[2019-09-28] MEDS: *HR* OxyCODONE Immed Rel 5 MG TABLET PO PRN ×4 (01:31→21:14)
[2019-09-28] MEDS: Piperacillin/Tazobactam 3.375 GM in 0.9 % Sodium Chloride Mini Bag 100 ML IVPB SCH ×3 (02:58→18:49)
[2019-09-28 03:56] LABS: Basophils # 0.1 K/mcL (0.0-0.2); Basophils % 0.5 %; Eosinophils # 0.1 K/mcL (0.0-0.6); Eosinophils % 0.7 %; Hematocrit 26.3 % (35.3-44.9); Hemoglobin 8.5 g/dL (11.5-15.4); Immature Granulocytes % 11.3 % (0-4); Lymphocytes # 2.1 K/mcL (0.6-4.6); Lymphocytes % 10.2 %; Mean Corpuscular HGB Conc 32.3 g/dL (31.6-35.5); Mean Corpuscular Volume 92.9 fL (83.0-100.0); Monocytes % 9.7 %; Nucleated Red Blood Cells 0.1 /100 WBC (0); Platelet Count 397 K/mcL (140-400); Red Blood Count 2.83 M/mcL (3.82-4.97); Red Cell Distribution Width 15.2 % (11.5-14.5); Segmented Neutrophils % 67.6 %; White Blood Count 20.2 K/mcL (4.3-11.1)
[2019-09-28 03:58] LABS: BUN/Creatinine Ratio 8 (6-26); Blood Urea Nitrogen 6 mg/dL (6-20); Calcium 8.4 mg/dL (8.6-10.3); Carbon Dioxide 25 mEq/L (23-29); Chloride 101 mEq/L (98-107); Glucose 99 mg/dL (70-105); Magnesium 1.8 mg/dL (1.6-2.6); Osmolality,Calculated 272 (280-300); Phosphorous 3.8 mg/dL (2.7-4.5); Potassium 4.1 mEq/L (3.5-5.1); Sodium 132 mEq/L (136-145); eGFR For African Americans > 60 (> 60); eGFR For Non-African Americans > 60 (> 60)
[2019-09-28 04:06] LABS: Neutrophils # 13.7 K/mcL (1.6-8.9)
[2019-09-28 04:42] LABS: Hypochromasia Present (Not Present)
[2019-09-28] MEDS: Ondansetron 4 MG/2 ML VIAL IVP PRN (06:12)
[2019-09-28] MEDS: Loratadine 10 MG TABLET PO SCH (07:43)
[2019-09-28] MEDS: Folic Acid 1 MG TABLET PO SCH (07:44)
[2019-09-28] MEDS: valACYclovir 500 MG TABLET PO SCH ×2 (07:44→20:30)
[2019-09-28] MEDS: QUEtiapine Fumarate 100 MG TABLET PO SCH ×2 (07:44→20:30)
[2019-09-28] MEDS: Lactobacillus 1 EACH CAP.SPRINK PO SCH ×2 (07:44→20:30)
[2019-09-28] MEDS: Gabapentin 300 MG CAPSULE PO SCH ×3 (07:44→20:30)
[2019-09-28] MEDS: levoFLOXacin 750 MG/150 ML 750 MG/150 ML BAG IVPB SCH (07:44)
[2019-09-28] MEDS: Cyanocobalamin (B-12) 1,000 MCG TABLET PO SCH (07:45)
[2019-09-28] MEDS ORDERED: *HR* Promethazine 25 MG/ML VIAL IVP ONE (09:14)
[2019-09-28] MEDS ORDERED: Aminoglycoside Consult 1 EACH MC ONE (15:05)
[2019-09-28] MEDS: Acetaminophen 325 MG TABLET PO PRN (21:48)
[2019-09-29] MEDS: Piperacillin/Tazobactam 3.375 GM in 0.9 % Sodium Chloride Mini Bag 100 ML IVPB SCH ×3 (02:47→20:04)
[2019-09-29 03:10] LABS: Hematocrit 26.5 % (35.3-44.9); Hemoglobin 8.6 g/dL (11.5-15.4); Mean Corpuscular HGB Conc 32.5 g/dL (31.6-35.5); Mean Corpuscular Hemoglobin 30.6 pg (28.0-33.3); Mean Corpuscular Volume 94.3 fL (83.0-100.0); Mean Platelet Volume 9.8 fL (9.4-12.4); Monocytes # 1.8 K/mcL (0.0-1.3); Nucleated Red Blood Cells 0.3 /100 WBC (0); Platelet Count 370 K/mcL (140-400); Red Blood Count 2.81 M/mcL (3.82-4.97); Red Cell Distribution Width 14.9 % (11.5-14.5); White Blood Count 17.9 K/mcL (4.3-11.1)
[2019-09-29 03:27] LABS: Eosinophils # 0.4 K/mcL (0.0-0.6); Lymphocytes # 2.9 K/mcL (0.6-4.6); Neutrophils # 12.2 K/mcL (1.6-8.9)
[2019-09-29 03:29] LABS: BUN/Creatinine Ratio 9 (6-26); Blood Urea Nitrogen 7 mg/dL (6-20); Calcium 8.2 mg/dL (8.6-10.3); Carbon Dioxide 25 mEq/L (23-29); Chloride 100 mEq/L (98-107); Glucose 121 mg/dL (70-105); Magnesium 1.7 mg/dL (1.6-2.6); Osmolality,Calculated 273 (280-300); Potassium 3.6 mEq/L (3.5-5.1); Sodium 132 mEq/L (136-145); eGFR For African Americans > 60 (> 60); eGFR For Non-African Americans > 60 (> 60)
[2019-09-29] MEDS: *HR* OxyCODONE Immed Rel 5 MG TABLET PO PRN (03:53)
[2019-09-29] MEDS: levoFLOXacin 750 MG/150 ML 750 MG/150 ML BAG IVPB SCH (08:07)
[2019-09-29] MEDS: Lactobacillus 1 EACH CAP.SPRINK PO SCH ×2 (08:08→20:03)
[2019-09-29] MEDS: Gabapentin 300 MG CAPSULE PO SCH ×3 (08:08→20:03)
[2019-09-29] MEDS: valACYclovir 500 MG TABLET PO SCH ×2 (08:08→20:03)
[2019-09-29] MEDS: Loratadine 10 MG TABLET PO SCH (08:09)
[2019-09-29] MEDS: QUEtiapine Fumarate 100 MG TABLET PO SCH ×2 (08:09→20:03)
[2019-09-29] MEDS: Cyanocobalamin (B-12) 1,000 MCG TABLET PO SCH (08:09)
[2019-09-29] MEDS: Folic Acid 1 MG TABLET PO SCH (08:09)
[2019-09-29] MEDS: Ondansetron 4 MG/2 ML VIAL IVP PRN (08:34)
[2019-09-29] MEDS ORDERED: *HR* Promethazine 25 MG/ML VIAL IVP ONE (09:32)
[2019-09-29] MEDS ORDERED: Acetaminophen IV 1,000 MG/100 ML INFUS..BTL IVPB ONE (11:28)
[2019-09-29] MEDS ORDERED: *HR* LORazepam 0.5 MG TABLET PO ONE (11:28)
[2019-09-29] MEDS ORDERED: Famotidine 20 MG/2 ML VIAL IVP ONE (11:35)
[2019-09-29] MEDS: *HR* Promethazine 25 MG/ML VIAL IVP PRN (17:00)
[2019-09-29] MEDS: Famotidine 20 MG TABLET PO SCH (20:03)
[2019-09-29] MEDS: Acetaminophen 325 MG TABLET PO PRN (20:03)
[2019-09-30] MEDS: *HR* OxyCODONE/APAP 10/325 TABLET PO PRN ×2 (02:39→08:59)
[2019-09-30] MEDS: Piperacillin/Tazobactam 3.375 GM in 0.9 % Sodium Chloride Mini Bag 100 ML IVPB SCH ×2 (02:39→10:35)
[2019-09-30] MEDS: *HR* Promethazine 25 MG/ML VIAL IVP PRN (02:39)
[2019-09-30 03:09] LABS: Hematocrit 25.5 % (35.3-44.9); Hemoglobin 8.3 g/dL (11.5-15.4); Mean Corpuscular HGB Conc 32.5 g/dL (31.6-35.5); Mean Corpuscular Hemoglobin 30.9 pg (28.0-33.3); Mean Corpuscular Volume 94.8 fL (83.0-100.0); Mean Platelet Volume 9.9 fL (9.4-12.4); Nucleated Red Blood Cells 0.2 /100 WBC (0); Platelet Count 364 K/mcL (140-400); Red Blood Count 2.69 M/mcL (3.82-4.97); Red Cell Distribution Width 14.8 % (11.5-14.5); White Blood Count 19.1 K/mcL (4.3-11.1)
[2019-09-30 03:24] LABS: BUN/Creatinine Ratio 12 (6-26); Blood Urea Nitrogen 10 mg/dL (6-20); Calcium 8.4 mg/dL (8.6-10.3); Carbon Dioxide 27 mEq/L (23-29); Chloride 98 mEq/L (98-107); Glucose 113 mg/dL (70-105); Magnesium 1.9 mg/dL (1.6-2.6); Osmolality,Calculated 274 (280-300); Potassium 3.8 mEq/L (3.5-5.1); Sodium 132 mEq/L (136-145); eGFR For African Americans > 60 (> 60); eGFR For Non-African Americans > 60 (> 60)
[2019-09-30 03:30] LABS: Basophils # 0.4 K/mcL (0.0-0.2); Large Platelets Present (Not Present); Lymphocytes # 1.2 K/mcL (0.6-4.6); Monocytes # 2.3 K/mcL (0.0-1.3); Neutrophils # 14.5 K/mcL (1.6-8.9); Platelet Estimate Normal (Normal)
[2019-09-30 03:31] LABS: Anisocytosis 1+ (Not Present)
[2019-09-30] MEDS: valACYclovir 500 MG TABLET PO SCH (07:59)
[2019-09-30] MEDS: QUEtiapine Fumarate 100 MG TABLET PO SCH (07:59)
[2019-09-30] MEDS: Famotidine 20 MG TABLET PO SCH (07:59)
[2019-09-30] MEDS: Lactobacillus 1 EACH CAP.SPRINK PO SCH (07:59)
[2019-09-30] MEDS: Gabapentin 300 MG CAPSULE PO SCH (07:59)
[2019-09-30] MEDS: Folic Acid 1 MG TABLET PO SCH (08:00)
[2019-09-30] MEDS: levoFLOXacin 750 MG/150 ML 750 MG/150 ML BAG IVPB SCH (08:00)
[2019-09-30] MEDS: Loratadine 10 MG TABLET PO SCH (08:00)
[2019-09-30] MEDS: Cyanocobalamin (B-12) 1,000 MCG TABLET PO SCH (08:00)
[2019-09-30 11:38] VITALS: BP 128/76
== END 2019-09-30 15:06 | disposition home or self-care (01) | DRG 720 ==
LOC: EMEROOARM 15:32 → 2ANU 15:32 → SUATTDRO 19:46 → 2NNU 19:57 → SUATTDRO 09-23 12:51 → 3BNU 09-23 21:19 → 3NENU 09-25 11:27
PROVIDERS: ADMIT Family Medicine; ATTEND Pharmacist